=== PATIENT | female | born 2000 | race Caucasian/White ===

== ENCOUNTER 2025-07-17 14:48 | Outpatient (REF) | payer OTHER, MEDICAID, SELFPAY ==
--- OUTSIDE RECORDS SUMMARY | 2024-02-09 07:00 | XMS_ITS ---
Author Organization [facility] Address [address] [place], [place] [id number] Care Team Providers Care Heating And Air Conditioning Mechanic Name Role Phone Delmi Borja Unavailable [phone] REASON FOR VISIT Wellness Encounters Encounter Location Date Provider Diagnosis Luis Alberto [address] [place] [address] 02/09/2024 Delmi Borja Plan Of Treatment No Information Progress Notes * Meg PARTIDADOB:2000 ([age] yo F)Acc No.[id number]:02/09/2024 Progress Notes Patient: Meg MORALEZ Provider: Kamala Borja :2000 A ge:24 Y S ex:Female Date:02/09/2024 Address:[address] [place], [place] [id number] Subjective: * Chief Complaints: * 1 . Wellness. * Medical History: Objective: * Vitals: Assessment: Plan: * Treatment: Care Plan: * Problems: * Billing Information: * Visit Code: * Procedure Codes: * Electronic signature of SIGRID Holloway on 07/17/2025 at 11:20 AM EDT Sign off status: Pending * Provider: Kamala Borja Date: 02/09/2024 Generated for Srinivasan johnson/Violeta/eTransmitting on: 0 07/17/2025 11:20 AM EDT
--- OUTSIDE RECORDS SUMMARY | 2025-07-17 11:20 | XMS_ITS | Encounter Summary ---
Author Organization [facility] Address [address] [facility] [place] [address] Care Team Providers Care Human Resources Director Name Role Phone Luz Blevins MD Primary Care Provider [phone] Reason for Visit * Reason Comments Well Women Visit Weight Management Encounter Details Date Type Department Care Team (Latest Contact Info) Description 07/17/2025 11:20 AM EDT Procedure Visit [facility] [address] [facility] [place] [address] Marnie Carson PA [address] [facility] [address] [facility] [address] [place], [id number] Well woman exam with routine gynecological exam; Encounter for weight management; Irregular menstrual cycle; PCOS (polycystic ovarian syndrome) Social History Tobacco Use Types Packs/Day Years Used Date Smoking Tobacco: Never Assessed Comments No Sex and Gender Information Value Date Recorded Sex Assigned at Not on file Legal Sex Female 7:15 PM EDT Gender Identity Not on file Sexual Orientation Not on file documented as of this encounter Last Filed Vital Signs Vital Sign Reading Time Taken Comments Blood Pressure 122/84 07/17/2025 11:45 AM EDT Pulse - - Temperature - - Respiratory Rate - - Oxygen Saturation - - Inhaled Oxygen Concentration - - Weight 80.2 kg (176 lb 12 oz) 07/17/2025 11:45 A M EDT Height 162.6 cm (5' 4 ) 07/17/2025 11:45 AM EDT Body Mass Index 30.34 07/17/2025 11:45 AM EDT documented in this encounter Progress Notes * ROXANN Rome - 07/17/2025 11:20 AM EDT Reason for Appointment: Patient ID: Meg Howell is a 25 y.o. female who presents for Well Women Visit and Weight Management Patient presents today for Annual Exam. MEDICATIONS Current Outpatient Medications Medication Instructions metFORMIN (GLUCOPHAGE) 1,000 mg, Oral, Daily with breakfast metFORMIN XR (GLUCOPHAGE-XR) 1,000 mg, Oral, Daily with evening meal, Do not crush, chew, or split. phentermine (ADIPEX-P) 37.5 mg, Oral, Daily before breakfast ALLERGIES No Known Allergies PROBLEMS Active Ambulatory Problems Diagnosis Date Noted No Active Ambulatory Problems Resolved Ambulatory Problems Diagnosis Date Noted No Resolved Ambulatory Problems No Additional Past Medical History HISTORY PAST MEDICAL HISTORY SOCIAL HISTORY No past medical history on file. Social History Tobacco Use Smoking status: Not on file Smokeless tobacco: Not on file Substance Use Topics Alcohol use: Not on file Drug use: Not on file FAMILY HISTORY No family history on file. SURGICAL HISTORY No past surgical history on file. REVIEW OF SYSTEMS Review of Systems: Review of Systems Constitutional: Negative. HENT: Negative. Eyes: Negative. Respiratory: Negative. Cardiovascular: Negative. Gastrointestinal: Negative. Genitourinary: Negative. Musculoskeletal: Negative. Skin: Negative. Neurological: Negative. All other systems reviewed and are negative. Hematological: Negative. Endocrine: Negative. Allergic/Immunologic: Negative. OBJECTIVE Objective: Physical Exam Constitutional: Appearance: Normal appearance. She is well-developed. Genitourinary: Vulva normal. Right Adnexa: not tender and no mass present. Left Adnexa: not tender and no mass present. No cervical discharge. Breasts: Breasts are soft. Right: Normal. Left: Normal. HENT: Head: Normocephalic. Nose: Nose normal. Mouth/Throat: Mouth: Mucous membranes are moist. Cardiovascular: Rate and Rhythm: Normal rate and regular rhythm. Pulmonary: Effort: Pulmonary effort is normal. Breath sounds: Normal breath sounds. Abdominal: General: Bowel sounds are normal. There is no distension. Palpations: Abdomen is soft. Tenderness: There is no abdominal tenderness. There is no guarding or rebound. Musculoskeletal: General: No swelling. Normal range of motion. Cervical back: Normal range of motion. Right lower leg: No edema. Left lower leg: No edema. Neurological: General: No focal deficit present. Mental Status: She is alert and oriented to person, place, and time. Skin: General: Skin is warm and dry. Psychiatric: Mood and Affect: Mood normal. Behavior: Behavior normal. Vitals and nursing note reviewed. Exam conducted with a tombstone polisher present. Vitals: Estimated body mass index is 30.34 kg/m?? as calculated from the following: Height as of this encounter: 5' 4 . Weight as of this encounter: 176 lb 12 oz. BP: 122/84 Patient's last menstrual period was 06/24/2025 (approximate). ASSESSMENT & PLAN ICD-10-CM 1. Well woman exam with routine gynecological exam Z01.419 Pap Smear 2. Encounter for weight management Z76.89 phentermine (Adipex-P) 37.5 MG tablet Annual Exam: Patient presents today for an annual exam. Patient states she is doing well and has no complaints. Pap was obtained without difficulty. No orders of the defined types were placed in this encounter. Follow Up: Patient is to return in one year for annual unless needed otherwise. Documented by Supriya North MA on behalf of: ROXANN Rome documented in this encounter Plan of Treatment Upcoming Encounters Date Type Department Care Team (Late st Contact Info) Description 10/09/2025 10:30 AM EST Office Visit [facility] [address] [place] [address] Marnie Carson PA [address] [place] [address] Scheduled Orders Name Type Priority Associated Diagnoses Orde r Schedule Pap Smear Pathology and Cytology Routine Well woman exam with routine gynecological exam Ordered: 07/17/2025 documented as of this encounter Visit Diagnoses Diagnosis Well woman exam with routine gynecological exam Routine gynecological examination Encounter for weight management Irregular menstrual cycle PCOS (polycystic ovarian syndrome) Polycystic ovaries documented in this encounter Care Teams Human Resources Director Relationship Specialty Start Date End Date Luz Blevins MD [address] [place] [address] PCP - General Family Medicine 03/14/23 documented as of this encounter
--- OUTSIDE RECORDS SUMMARY | 2025-07-17 14:53 | XMS_ITS | Clinical Summary ---
Author Organization [facility] Address [id number] [address] [place] [address] Care Team Providers Care Computer Systems Support Specialist Name Role Phone No Pcp, No Pcp Primary Care Provider Unavailabl e Allergies No known active allergies Medications sertraline (ZOLOFT) 25 mg tabletIndication s:Anxiety Take 1 tablet (25 mg total) by mouth in the morning. 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 Reportedly treated with 3 doses of Bicillin. Reviewed case with Dr. Simmons. The patient with low titer disease. It is quite difficult to determine if RPR fast condition, reinfection, persistent disease is present. Recommendation is that the patient is treated again because she is now . Treatment needs to be Bicillin in a dose of 2.4 million units each week x3 weeks. Resolved Problems Problem Noted Date Diagnosed Date Resolved Date Antepartum syphilis in second trimester 02/17/2019 06/14/2021 Encounters Date Type Department Care Team Description 07/08/2025 Telephone [facility] Internal Medicine - Family Medicine [address] [place] [place] [address] Rito Molina, VASCULAR SONOGRAPHER 06/10/2025 Travel from Last 3 Months Immunizations No known immunizations Family History Medical History Relation Name Comments Hypertension Mother Thyroid disease Paternal Grandmother Cancer Neg Hx Hyperlipidemia Neg Hx Relation Name Status Comments Father Alive Mother Alive Paternal Grandmother Social History Tobacco Use Types Packs/Day Years Used Date Smoking Tobacco: Never Smokeless Tobacco: Never Tobacco Cessation:Counseling Given: Not Answered Alcohol Use Standard Drinks/Week Comments Not Currently 0 (1 standard drink = 0.6 oz pur e alcohol) not while . Overall Financial Resource Strain (CARDIA) Answe r Date Recorded How hard is it for you to pa y for the very basics like food, housing, medical care, and heating? Not very hard 01/14/2025 PHQ-2 Answer Date Recorded Total Score 0 01/15/2025 PRAPARE - Transportation Answer Date Re corded In the past 12 months, has l ack of transportation kept you from medical appointments or from getting medications? No 01/04 In the past 12 months, has l ack of transportation kept you from meetings, work, or from getting things needed for daily living? No 01/14/2025 Housing Instability Answer Date Recorde d Are you worried or concerned that in the next two months you may not have stable housing that you own, rent or stay in as a part of a household? No 01/14/2025 Childcare Answer Date Recorded Childcare Unknown 04/17/2019 Employment Answer Date Recorded Employment Unknown 04/17/2019 Hunger Screening Answer Date Recorded Within the past 12 months we worried whether our food would run out before we got money to buy more. Never True 01/14/2025 Within the past 12 months th e food we bought just didn't last and we didn't have money to get more. Never True 01/14/2025 Purpose - Life Answer Date Recorded Purpose and direction in life Unknown Comments No Sex and Gender Information Value Date Recorded Sex Assigned at Female 12/18/2022 11:43 PM EST Legal Sex Female 11:53 AM EDT Gender Identity Female 12/18/2022 11:43 PM EST Sexual Orientation Straight 12/18/2022 11 :43 PM EST Last Filed Vital Signs Vital Sign Reading Time Taken Comments Blood Pressure 118/70 01/15/2025 2:36 PM EDT Pulse 78 01/15/2025 2:36 PM EDT Temperature 36.6 C (97.9 F) 01/15/2025 2:36 PM EDT Respiratory Rate 18 01/15/2025 2:36 PM EDT Oxygen Saturation 99% 01/15/2025 2:36 PM EDT Inhaled Oxygen Concentration - - Weight 82.2 kg (181 lb 3.2 oz) 01/15/2025 2:36 P M EDT Height 161 cm (5' 3.39 ) 01/15/2025 2:36 PM EDT Body Mass Index 31.71 01/15/2025 2:36 PM EDT Plan of Treatment Health Maintenance Due Date Last Done Comments Adult BMI Follow Up Plan 01/05/2016 Pap Smear 2019 DTaP,Tdap and Td Vaccines (7 - Td or Tdap) 06/02/2020 06/02/2010, 05/12/2003, 01/27/1999, Additional history exists Influenza Vaccine 07/07/2025 09/14/2006, , 11/12/2004 Adult BMI Screening 01/15/2026 01/15/2025 Depression Screening 01/15/2026 01/15/2025 Tobacco Screening 01/15/2026 01/15/2025 Goals Goal Patient Goal Type Associated Problems Recent Progress Patient-Stated? Author safe discharge to home General Yes Reshma Mancia, RN Note: Evaluation of progress towards goal: safe transition from hospital to home with family support. Medical Devices Not on file Procedures Procedure Name Priority Date/Time Associated Diagnosis Comments THYROID PROFILE INCLUDES TSH FT4 Routine 06/10/2025 1:41 PM EDT Polycystic ovarian syndrome HCG-BETA, SERUM Routine 06/10/2025 1:41 PM EDT Polycystic ovarian syndrome CBC WITH AUTO DIFFERENTIAL Routine 06/10/2025 1:41 PM EDT Polycystic ovarian syndrome FOLLICLE STIMULATING HORMONE Routine 06/10/2025 1:41 PM EDT Polycystic ovarian syndrome LUTEINIZING HORMONE Routine 06/10/2025 1 :41 PM EDT Polycystic ovarian syndrome HEMOGLOBIN A1C Routine 06/10/2025 1:41 PM EDT Polycystic ovarian syndrome DEHYDROEPIANDROSTERON E, SERUM Routine 06/10/2025 1:41 PM EDT Polycystic ovarian syndrome DHEA-SULFATE Routine 06/10/2025 1:41 PM EDT Polycystic ovarian syndrome PROLACTIN Routine 06/10/2025 1:41 PM EDT Polycystic ovarian syndrome from Last 3 Months Results * Dehydroepiandrosterone, Serum (DHEA) (06/10/2025 1:41 PM EDT) DEHYDROEPIANDROSTER ONE, S 4.8 <13 ng/mL 06/12/2025 12:38 PM EDT [facility] Comment: ADDITIONAL INFORMATION This test was developed and its performance characteristics determined by [facility] in a manner consistent with CLIA requirements. This test has not been cleared or approved by the U.S. Food and Drug Administration. Test Performed by: [facility] - [address] [address] Library Media Technician: Jesus Brandt Ph.D.; CLIA# [id number] Blood Venous blood / Unknown Venipuncture / Unknown 06/10/2025 1:41 PM EDT 06/10/2025 1:43 PM EDT us Marcelino Hein DO LAB BLOOD ORDERABLES Final Resu lt [facility] [address] [place] [address], [place] * Thyroid profile includes TSH FT4 (06/10/2025 1:41 PM EDT) Pathologist [facility] FREE T4 0.82 0.61 - 1.60 ng/dL 06/10/2025 7:41 PM EDT [facility] TSH 1.23 0.49 - 4.67 uIU/mL 06/10/2025 7:41 PM EDT [facility] Blood Venous blood / Unknown Venipuncture / Unknown 06/10/2025 1:41 PM EDT 06/10/2025 1:43 PM EDT Marcelino Hein DO LAB BLOOD ORDERABLES Final Resu lt [facility] [address] [place] [id number], [place] [phone] * CBC auto differential (06/10/2025 1:41 PM EDT) [facility] WBC 6.5 4 - 11 x10E9/L 06/10/2025 7:04 PM EDT [facility] RBC Count 5.08 3.8 - 5.2 X10E12/L 06/10/2025 7:04 PM EDT [facility] Hemoglobin 13.9 11.7 - 15.5 g/dL 06/10/2025 7:04 PM EDT [facility] Hematocrit 40.6 35 - 47 % 06/10/2025 7:04 PM EDT [facility] MCV 80 80 - 100 fL 06/10/2025 7:04 PM EDT [facility] MCH 27.4 27 - 34 pg 06/10/2025 7:04 PM EDT [facility] MCHC 34.3 32 - 36 g/dL 06/10/2025 7:04 PM EDT [facility] RDW 13.6 11.5 - 15 % 06/10/2025 7:04 PM EDT [facility] Platelet Count 296 150 - 450 X10E9/L 06/10/2025 7:04 PM EDT [facility] MPV 7.9 7 - 12 fL 06/10/2025 7:04 PM EDT [facility] Neutrophils % 61.5 % 06/10/2025 7:04 PM EDT [facility] Lymphocytes % 31.2 % 06/10/2025 7:04 PM EDT [facility] Monocytes % 5.4 % 06/10/2025 7:04 PM EDT [facility] Eosinophils % 1.3 % 06/10/2025 7:04 PM EDT [facility] Basophils % 0.6 % 06/10/2025 7:04 PM EDT [facility] Neutrophils Absolute (A) 4.0 1.5 - 6.6 10*3/uL 06/10/2025 7:04 PM EDT [facility] Lymphocytes Absolute 2.0 1.0 - 3.5 10*3/uL 06/10/2025 7:04 PM EDT [facility] Monocytes Absolute 0.3 0.0 - 0.9 10*3/uL 06/10/2025 7:04 PM EDT [facility] Eosinophils Absolute 0.1 0.0 - 0.4 10*3/uL 06/10/2025 7:04 PM EDT [facility] Basophils Absolute 0.0 0.0 - 0.2 10*3/uL 06/10/2025 7:04 PM EDT [facility] Differential Type AUTOMATED DIFFERENTIAL 06/10/2025 7:04 PM EDT [facility] Blood Venous blood / Unknown Venipuncture / Unknown 06/10/2025 1:41 PM EDT 06/10/2025 1:43 PM EDT us Marcelino R Melvina DO LAB BLOOD ORDERABLES Final Resu lt [facility] [address] [place] [address], [place] [phone] * Prolactin (06/10/2025 1:41 PM EDT) PROLACTIN 5.4 3.3 - 26.7 ng/mL 06/10/2025 7:39 PM EDT [facility] Blood Venous blood / Unknown Venipuncture / Unknown 06/10/2025 1:41 PM EDT 06/10/2025 1:43 PM EDT Marcelino R Melvina DO LAB BLOOD ORDERABLES Final Resu lt [facility] [address] [place] [address], [place] [phone] * (ABNORMAL) DHEA-sulfate (06/10/2025 1:41 PM EDT) Pathologist [facility] DHEA S 481(H) 18 - 391 ug/dL 06/10/2025 7:36 PM EDT [facility] Blood Venous blood / Unknown Venipuncture / Unknown 06/10/2025 1:41 PM EDT 06/10/2025 1:43 PM EDT Marcelino R Melvina DO LAB BLOOD ORDERABLES Final Resu lt [facility] [address] [place] [address], * hCG, quantitative, (06/10/2025 1:41 PM EDT) SERUM B HCG,3RD I.S. <5 mIU/mL 06/10/2025 7:25 PM EDT [facility] Blood Venous blood / Unknown Venipuncture / Unknown 06/10/2025 1:41 PM EDT 06/10/2025 1:43 PM EDT Narrative [facility] - 06/10/2025 7:25 PM EDT WEEKS (SINCE LMP) MIU/mL 3 WEEKS 5 - 50 4 WEEKS 5 - 426 5 WEEKS 18 - 7,340 6 WEEKS 1,080 - 56,500 7-8 WEEKS 7,650 - 229,000 9-12 WEEKS 25,700 - 288,000 13-16 WEEKS 13,300 - 254,000 17-24 WEEKS 4,060 - 165,400 25-40 WEEKS 3,640 - 117,000 MALES AND NON- FEMALES - <5 MIU/mL This test has been FDA approved for use in only. Elevated levels are not necessarily diagnostic for trophoblastic or nontrophoblastic neoplasms. Marcelino Hein DO LAB BLOOD ORDERABLES Final Resu lt [facility] [address] [place] [address], [place] [phone] * Hemoglobin A1c (06/10/2025 1:41 PM EDT) HEMOGLOBIN A1C 5.4 4.4 - 5.6 % 06/10/2025 7:41 PM EDT [facility] Comment: ADA Guidelines Result HgbA1c Normal : less than 5.7 % Prediabetes : 5.7 % to 6.4 % Diabetes : > 6.4 % Use with caution in patients with abnormal hemoglobin variants as the half-life of red blood cells and in vivo glycation rates are affected. EST. AVERAGE GLUCOSE 108 mg/dL 06/10/2025 7:41 PM EDT [facility] Blood Venous blood / Unknown Venipuncture / Unknown 06/10/2025 1:41 PM EDT 06/10/2025 1:43 PM EDT Marcelino R Melvina DO LAB BLOOD ORDERABLES Final Resu lt [facility] [address] [place] [address], [place] [phone] * Luteinizing hormone (06/10/2025 1:41 PM EDT) LUTEINIZING HORMONE 11.3 mIU/mL 06/10/2025 8:01 PM EDT [facility] Blood Venous blood / Unknown Venipuncture / Unknown 06/10/2025 1:41 PM EDT 06/10/2025 1:43 PM EDT [facility] - 06/10/2025 8:01 PM EDT NORMAL FEMALE Follicular 2.1-10.9 mIU/mL Mid Cycle 19.2-103 mIU/mL Luteal 1.2-12.9 mIU/mL Post Deana 10.9-58.6 mIU/mL Marcelino R Melvina DO LAB BLOOD ORDERABLES Final Resu lt [facility] [address] [place] [address], [place] [phone] * Follicle stimulating hormone (06/10/2025 1:41 PM EDT) FOLLICLE STIM HORMONE 6.9 mIU/mL 06/10/2025 8:00 PM EDT [facility] Blood Venous blood / Unknown Venipuncture / Unknown 06/10/2025 1:41 PM EDT 06/10/2025 1:43 PM EDT [facility] - 06/10/2025 8:00 PM EDT NORMAL FEMALE: Luteal 1.8-5.1 mIU/mL Follicular 3.8-8.8 mIU/mL Mid Cycle 4.5-22.5 mIU/mL Post Elizabeth 16.7-113.6 mIU/mL us Marcelino Hein DO LAB BLOOD ORDERABLES Final Resu lt [facility] [address] [place] [address], [place] [phone] from Last 3 Months Insurance [employer] Member Subscriber Plan / Payer (Ef fective 2022-Present) Name:Meg Howell Relation to Subscriber:Self Name:Meg Howell Payer ID:Not on file Group ID:[id number] Type:Not on file Address: [address] Advance Directives * Full Code (Latest Code Status on File) Date Activated Date Inactivated Comments 12/18/2022 10:13 PM 12/19/2022 6:57 PM Care Teams Computer Systems Support Specialist Relationship Specialty Start Date End Date No Pcp, [place] [address] PCP - General Family Medicine 03/12/19
--- OUTSIDE RECORDS SUMMARY | 2025-07-17 14:53 | XMS_ITS | Encounter Summary ---
Author Organization [facility] Address [address] [facility] [place] [address] Care Team Providers Care Assistant Technician Name Role Phone Luz Blevins MD Primary Care Provider [phone] Encounter Details Date Type Department Care Team (Late Contact Info) Description 07/17/2025 Bamboo flowsheet [facility] [address] [place] [address] Marnie Carson PA [address] [place] [address] [address] [place], [facility] Social History Tobacco Use Types Packs/Day Years Used Date Smoking Tobacco: Never Assessed Comments No Sex and Gender Information Value Date Recorded Sex Assigned at Not on file Legal Sex Female 7:15 PM EDT Gender Identity Not on file Sexual Orientation Not on file documented as of this encounter Plan of Treatment Upcoming Encounters Date Type Department Care Team (Late Contact Info) Description 10/09/2025 10:30 AM EST Office Visit [facility] [address] [place] [address] Marnie Carson PA [address] [place] [address] documented as of this encounter Visit Diagnoses Not on filedocumented in this encounter Care Teams Assistant Technician Relationship Specialty Start Date End Date Luz Blevins MD [address] [facility] [place], [place] [id number] PCP - General Family Medicine 03/14/23 documented as of this encounter
--- OUTSIDE RECORDS SUMMARY | 2025-07-17 14:53 | XMS_ITS | Encounter Summary ---
Author Organization [facility] tem Address [id number] [address] [place] [address] Care Team Providers Care Wind Field Service Manager Name Role Phone No Pcp, No Pcp Primary Care Provider Unavailabl e Encounter Details Date Type Department Care Team (Late st Contact Info) Description 05/17/2021 Orders Only M[facility]- Medicine at [facility] [address] [place] [id number] External, Scanning Provider Social History Tobacco Use Types Packs/Day Years Used Date Smoking Tobacco: Never Smokeless Tobacco: Never Alcohol Use Standard Drinks/Week Comments Not Currently 0 (1 standard drink = 0.6 oz pur e alcohol) not while . Childcare Answer Date Recorded Childcare Unknown 04/17/2019 Employment Answer Date Recorded Employment Unknown 04/17/2019 Purpose - Life Answer Date Recorded Purpose and direction in life Unknown Comments Yes Sex and Gender Information Value Date Recorded Sex Assigned at Female 12/18/2022 11:43 PM EST Legal Sex Female 11:53 AM EDT Gender Identity Female 12/18/2022 11:43 PM EST Sexual Orientation Straight 12/18/2022 11 :43 PM EST documented as of this encounter Plan of Treatment Not on file documented as of this encounter Procedures Procedure Name Priority Date/Time Associated Diagnosis Comments US PREG LMTD 1 OR MORE FETUS Routine 03/23/2021 documented in this encounter Results * Ultrasound limited 1 or more fetus (03/23/2021) Anatomical Region Laterality Modality OB-CLERK STENOGRAPHER Ultrasound Narrative 03/23/2021 see attached report us Scanning Provider External IMG US ORDERABLES Pablo lilian Result - Final documented in this encounter Visit Diagnoses Not on filedocumented in this encounter Care Teams Wind Field Service Manager Relationship Specialty Start Date End Date No Pcp, [place] [address] PCP - General Family Medicine 03/12/19 documented as of this encounter
--- OUTSIDE RECORDS SUMMARY | 2025-07-17 14:53 | XMS_ITS | Patient Health Record ---
Author Organization [facility]ices Address [address] [place], [place] [id number] Support Name Relationship Address Phone Gerardo Briceño Emergency Contact [address] [place] [address] Unavailable Meg Howell Guarantor Unknown [phone] Reason For Referral No Information Plan Of Treatment No Information
--- OUTSIDE RECORDS SUMMARY | 2025-07-17 14:53 | XMS_ITS | Clinical Summary ---
Author Organization [facility] Address [address] [place] [address] Care Team Providers Care Postpartum Rn Name Role Phone Luz Blevins MD Primary Care Provider [phone] Allergies No known active allergies Medications phentermine (Adipex-P) 37.5 MG tabletIndicati ons:Encounter for weight management Take 1 tablet (37.5 mg) by mouth in the morning. Take before meals. 90 tablet 07/17/20 25 025 Active metFORMIN XR (Glucophage-XR ) 500 MG 24 hr tabletIndicati ons:Irregular menstrual cycle,PCOS (polycystic ovarian syndrome) Take 2 tablets (1,000 mg) by mouth in the evening. Take with meals Do not crush, chew, or split. 180 tablet 3 07/17/20 25 026 Active metFORMIN XR (Glucophage-XR ) 500 MG 24 hr tabletIndicati ons:Irregular menstrual cycle,PCOS (polycystic ovarian syndrome) Take 2 tablets (1,000 mg) by mouth in the evening. Take with meals Do not crush, chew, or split. 30 tablet 11 06/11/20 25 025 Discontinued(Re order) phentermine (Adipex-P) 37.5 MG tabletIndicati ons:Encounter for weight management Take 1 tablet (37.5 mg) by mouth in the morning. Take before meals. 30 tablet 06/11/20 25 025 Discontinued metFORMIN (Glucophage) 500 MG tabletIndicati ons:Weight loss counseling, encounter for,PCOS (polycystic ovarian syndrome),Insu tahir resistance Take 2 tablets (1,000 mg) by mouth in the morning. Take with meals. 60 tablet 11 06/11/20 25 025 Discontinued Encounters Date Type Department Care Team Description 07/17/2025 11:20 AM EDT [place] [address] Marnie Carson PA Well woman exam with routine gynecological exam; Encounter for weight management; Irregular menstrual cycle; PCOS (polycystic ovarian syndrome) 07/17/2025 Bamboo [place] [address] Marnie Carson PA 06/11/2025 2:10 PM EDT [place] [address] Marcelino Hein DO Weight loss counseling, encounter for; Irregular menstrual cycle; PCOS (polycystic ovarian syndrome); Encounter for weight management; Insulin resistance 06/11/2025 11:00 AM EDT Ancillary [place] [address] PCOS (polycystic ovarian syndrome) 06/10/2025 External Result Encounter [facility] External Department Unsolicited Marcelino Hein DO 05/13/2025 1:50 PM EDT [place] [address] Marcelino Hein DO Irregular menstrual cycle; History of ovarian cyst; PCOS (polycystic ovarian syndrome) 05/13/2025 Bamboo [place] [address] Marcelino Hein DO 05/12/2025 Travel from Last 3 Months Social History Tobacco Use Types Packs/Day Years Used Date Smoking Tobacco: Never Assessed Comments No Sex and Gender Information Value Date Recorded Sex Assigned at Not on file Legal Sex Female 7:15 PM EDT Gender Identity Not on file Sexual Orientation Not on file Last Filed Vital Signs Vital Sign Reading [...] Mass Index 30.34 07/17/2025 11:45 AM EDT Plan of Treatment Upcoming Encounters Date Type Department Care Team (Late st Contact Info) Description 10/09/2025 10:30 AM EST Office Visit [facility] [address] [address] Marnie Carson PA [address] [place] [address] Health Maintenance Due Date Last Done Comments Influenza Vaccine (#1) 2025 09/14/2006, 2004, 11/12/2004 Procedures Procedure Name Priority Date/Time Associated Diagnosis Comments US PELVIC COMPLETE W/ TV Routine 06/11/2025 11:15 AM EDT PCOS (polycystic ovarian syndrome) DEHYDROEPIANDROSTERON E, S Routine 06/10/2025 1:41 PM EDT LH Routine 06/10/2025 1:41 PM EDT FSH Routine 06/10/2025 1:41 PM EDT TSH Routine 06/10/2025 1:41 PM EDT HEMOGLOBIN A1C Routine 06/10/2025 1:41 PM EDT PROLACTIN Routine 06/10/2025 1:41 PM EDT DHEA SULFATE Routine 06/10/2025 1:41 PM EDT SERUM B HCG, 3RD I.S. ([facility]) Routine 06/10/2025 1:41 PM EDT CBC WITH AUTO DIFFERENTIAL Routine 06/10/2025 1:41 PM EDT from Last 3 Months Results * US Pelvis w/ TV (06/11/2025 11:15 AM EDT) Anatomical Region Laterality Modality Pelvis Ultrasound 06/12/2025 12:1 1 PM EDT Impressions 06/12/2025 12:33 PM EDT 1. Left ovarian complex cyst. 2. Normal uterus. TRANSCRIBED BY: ELECTRONICALLY SIGNED BY: Jaret Munoz MD Narrative 06/12/2025 12:33 PM EDT FINDINGS: Uterus 8.4 x 3.9 x 5.9 cm Endometrium 7 mm Right Ovary Surgically absent Left Ovary 5.2 x 3.6 x 3.6 cm Normal uterine orientation and morphology. Normal endometrium. No pelvic fluid. Heterogeneous hypoechogenic area within the left ovary 2.8 x 2.6 x 2.4 cm area, likely complex cyst. Several neighboring peripheral follicles, no shadowing or increase in vascularity. Procedure Note Jaret Munoz MD - 06/12/2025 FINDINGS: Uterus 8.4 x 3.9 x 5.9 cm Endometrium 7 mm Right Ovary Surgically absent Left Ovary 5.2 x 3.6 x 3.6 cm Normal uterine orientation and morphology. Normal endometrium. No pelvic fluid. Heterogeneous hypoechogenic area within the left ovary 2.8 x 2.6 x 2.4 cmarea, likely complex cyst. Several neighboring peripheral follicles, noshadowing or increase in vascularity. IMPRESSION: 1. Left ovarian complex cyst. 2. Normal uterus. TRANSCRIBED BY: ELECTRONICALLY SIGNED BY: Jaret Munoz MD [facility] DO [facility] US PROCEDURES Final Result * DEHYDROEPIANDROSTERONE, S (06/10/2025 1:41 PM EDT) DEHYDROEPIANDROSTERO NE, S 4.8 <13 ng/mL [facility] Comment: ADDITIONAL INFORMATION This test was developed and its performance characteristics determined by [facility] in a manner consistent with CLIA requirements. This test has not been cleared or approved by the U.S. Food and Drug Administration. Test Performed by: [facility] [address] [place] [address] Retail Stocker: Jesus Brandt Ph.D.; CLIA# [id number] 06/10/2025 1:41 PM EDT 06/10/2025 6:16 PM EDT us Marcelino Hein DO LAB BLOOD ORDERABLES Final Resul t [facility] * SERUM B HCG, 3RD I.S. ([facility]) (06/10/2025 1:41 PM EDT) SERUM B HCG, 3RD I.S. <5 mIU/mL [facility] Comment: WEEKS (SINCE LMP) MIU/mL 3 WEEKS 5 [...] necessarily diagnostic for trophoblastic or nontrophoblastic neoplasms. PERFORMED AT [facility] [address],[place] [address] 06/10/2025 1:41 PM EDT 06/10/2025 6:16 PM EDT us Marcelino Melvina DO LAB BLOOD ORDERABLES Final Resul t [facility] * CBC auto differential (06/10/2025 1:41 PM EDT) WHITE BLOOD CELL COUNT, WBC 6.5 4 - 11 x10E9/L [facility] RED BLOOD CELL COUNT, RBC 5.08 3.8 - 5.2 X10E12/L [facility] HEMOGLOBIN 13.9 11.7 - 15.5 g/dL [facility] HEMATOCRIT 40.6 35 - 47 % [facility] MEAN CELL VOLUME, MCV 80 80 - 100 fL [facility] MEAN CELL HEMOGLOBIN, MCH 27.4 27 - 34 pg [facility] MEAN CELL HEMOGLOGIN CONCENTRATION, MCHC 34.3 32 - 36 g/dL [facility] RED CELL DISTRIBUTION WIDTH, RDW 13.6 11.5 - 15 % [facility] PLATELET COUNT 296 150 - 450 X10E9/L [facility] MEAN PLATELET VOLUME, MPV 7.9 7 - 12 fL [facility] % NEUTROPHILS 61.5 % [facility] % LYMPHOCYTES 31.2 % [facility] % MONOCYTES 5.4 % [facility] % EOSINOPHILS 1.3 % [facility] % BASOPHILS 0.6 % [facility] ABSOLUTE NEUTROPHIL 4.0 1.5 - 6.6 10*3/uL [facility] ABSOLUTE LYMPHOCYTE 2.0 1.0 - 3.5 10*3/uL [facility] ABSOLUTE MONOCYTE 0.3 0.0 - 0.9 10*3/uL [facility] ABSOLUTE EOSINOPHIL 0.1 0.0 - 0.4 10*3/uL [facility] ABSOLUTE BASOPHIL 0.0 0.0 - 0.2 10*3/uL [facility] DIFFERENTIAL TYPE AUTOMATED DIFFERENTIAL [facility] Comment: PERFORMED AT [facility] [address],[place] [address] 06/10/2025 1:41 PM EDT 06/10/2025 6:16 PM EDT us Marcelino Melvina DO LAB BLOOD ORDERABLES Final Resul t [facility] * Prolactin (06/10/2025 1:41 PM EDT) PROLACTIN 5.4 3.3 - 26.7 ng/mL [facility] Comment: PERFORMED AT [address],[place] [address] 06/10/2025 1:41 PM EDT 06/10/2025 6:16 PM EDT us Marcelino Melvina DO LAB BLOOD ORDERABLES Final Resul t [facility] * (ABNORMAL) DHEA-sulfate (06/10/2025 1:41 PM EDT) DHEA S 481(H) 18 - 391 ug/dL [facility] Comment: PERFORMED [address],[place] [address] 06/10/2025 1:41 PM EDT 06/10/2025 6:16 PM EDT us Marcelino Melvina DO LAB BLOOD ORDERABLES Final Resul t Performing Organization Address City/[facility]/ZIP Co de Phone Number [facility] * TSH (06/10/2025 1:41 PM EDT) FREE T4 0.82 0.61 - 1.60 ng/dL [facility] TSH 1.23 0.49 - 4.67 uIU/mL [facility] Comment: PERFORMED [address],[place] [address] 06/10/2025 1:41 PM EDT 06/10/2025 6:16 PM EDT us Marcelino Melvina DO LAB BLOOD ORDERABLES Final Resul t [facility] * Hemoglobin A1c (06/10/2025 1:41 PM EDT) HEMOGLOBIN A1C 5.4 4.4 - 5.6 % [facility] Comment: ADA Guidelines Result HgbA1c Normal : less than 5.7 % Prediabetes : 5.7 % to 6.4 % Diabetes : > 6.4 % Use with caution in patients with abnormal hemoglobin variants as the half-life of red blood cells and in vivo glycation rates are affected. AVERAGE GLUCOSE 108 mg/dL [facility] Comment: PERFORMED AT [address], [place] [address] 06/10/2025 1:41 PM EDT 06/10/2025 6:16 PM EDT [facility] BLOOD ORDERABLES Final Resul t Performing Organization Address [facility] Co de Phone Number [facility] * Luteinizing hormone (06/10/2025 1:41 PM EDT) LUTEINIZING HORMONE 11.3 mIU/mL [facility] Comment: NORMAL FEMALE Follicular 2.1-10.9 mIU/mL Mid Cycle 19.2-103 mIU/mL Luteal 1.2-12.9 mIU/mL Post [place] 10.9-58.6 mIU/mL PERFORMED AT [address],[place] [address] 06/10/2025 1:41 PM EDT 06/10/2025 6:16 PM EDT Audanikazio DO LAB BLOOD ORDERABLES Final Resul t Performing Organization Address City/[facility] Co de Phone Number [facility] * Follicle stimulating hormone (06/10/2025 1:41 PM EDT) FOLLICLE STIM HORMONE 6.9 mIU/mL [facility] Comment: NORMAL FEMALE: Luteal 1.8-5.1 mIU/mL Follicular 3.8-8.8 mIU/mL Mid Cycle 4.5-22.5 mIU/mL Post [place] 16.7-113.6 mIU/mL PERFORMED AT [facility] [address],[place] [address] 06/10/2025 1:41 PM EDT 06/10/2025 6:16 PM EDT us Marcelino Melvina DO LAB BLOOD ORDERABLES Final Resul t [facility] from Last 3 Months Insurance [facility] BCBS MEDICAID [place] Care Teams Postpartum Rn Relationship Specialty Start Date End Date Luz Blevins MD [address] [place] [address] PCP - General Family Medicine 03/14/23
--- OUTSIDE RECORDS SUMMARY | 2025-07-17 14:53 | XMS_ITS | Encounter Summary ---
Author Organization [facility] tem Address [facility] [id number] [address] [place] [address] Care Team Providers Care Reimbursement Representative Name Role Phone No Pcp, No Pcp Primary Care Provider Unavailabl e Encounter Details Date Type Department Care Team (Late st Contact Info) Description 01/16/2025 Orders Only [facility] - Family Medicine [address] [place] [address] Shaun Hinkle, DO [address] [place] [address] Anxiety (Primary Dx) Social History Tobacco Use Types Packs/Day Years [...] on file documented as of this encounter Goals Goal Patient Goal Type Associated Problems Recent Progress Patient-Stated? Author safe discharge to home General Yes Reshma Mancia, RN Note: Evaluation of progress towards goal: safe transition from hospital to home with family support. documented as of this encounter Visit Diagnoses Diagnosis Anxiety- Primary Anxiety state, unspecified documented in this encounter Additional Health Concerns Assessment Noted Time PHQ-9 Depression Total Score: 0 01/16/20 25 2:34 PM EDT documented as of this encounter Care Teams Reimbursement Representative Relationship Specialty Start Date End Date No Pcp, [place] [address] PCP - General Family Medicine 03/12/19 documented as of this encounter
--- OUTSIDE RECORDS SUMMARY | 2025-07-17 14:53 | XMS_ITS | Clinical Summary ---
Author Organization [facility] Address [address] [place] [address] Care Team Providers Care Interactive Account Manager Name Role Phone Unavailable Primary Care Provider Unavailabl e Social History Tobacco Use Types Packs/Day Years Used Date Smoking Tobacco: Never Assessed Comments Unknown Sex and Gender Information Value Date Recorded Sex Assigned at Not on file Legal Sex Female 12:14 AM EDT Gender Identity Not on file Sexual Orientation Not on file Last Filed Vital Signs Vital Sign Reading Time Taken Comments Blood Pressure 136/87 02/14/2019 9:46 AM EDT Pulse - - Temperature 36.4 C (97.6 F) 02/14/2019 9:46 AM EDT Respiratory Rate - - Oxygen Saturation - - Inhaled Oxygen Concentration - - Weight 65.8 kg (145 lb) 02/14/2019 9:43 AM EDT Height 162.6 cm (5' 4 ) 02/14/2019 9:43 AM EDT Body Mass Index 24.89 02/14/2019 9:43 AM EDT Plan of Treatment Not on file
--- OUTSIDE RECORDS SUMMARY | 2025-07-17 14:53 | XMS_ITS | Encounter Summary ---
Author Organization [employer] [facility] tem Address [id number] [address] [place] [address] Care Team Providers Care Amalgamator Name Role Phone No Pcp, No Pcp Primary Care Provider Unavailabl e Encounter Details Date Type Department Care Team (Late st Contact Info) Description 07/08/2025 Telephone [facility] - Family Medicine [address] [place] [id number] Rito Molina, LEACH CELL OPERATOR Social History Tobacco Use Types Packs/Day Years [...] PM EST documented as of this encounter Miscellaneous Notes * Telephone Encounter - Rito Molina CNA - 07/08/2025 10:15 AM EDT ----- Message from Shaun Hinkle DO sent at 01/17/2025 4:33 PM EDT ----- Recheck anxiety * Telephone Encounter - Rito Molina CNA - 07/08/2025 10:15 AM EDT Called patient to schedule an appointment; Patient stated she was unable to schedule one right now and will call back. documented in this encounter Plan of Treatment Not on file documented as of this encounter Goals Goal Patient Goal Type Associated Problems Recent Progress Patient-Stated? Author safe discharge to home General Yes Reshma Mancia, RN Note: Evaluation of progress towards goal: safe transition from hospital to home with family support. documented as of this encounter Visit Diagnoses Not on filedocumented in this encounter Additional Health Concerns Assessment Noted Time PHQ-9 Depression Total Score: 0 01/16/20 25 2:34 PM EDT documented as of this encounter Care Teams Amalgamator Relationship Specialty Start Date End Date No [place]cp[place] [address] PCP - General Family Medicine 03/12/19 documented as of this encounter
[2025-07-21 17:08] LABS: Age Gdln ACOG Testing Note (.); IGP, rfx Aptima HPV ASCU Note (.)
== END 2025-07-17 14:49 | disposition home or self-care (01) ==
LOC: LAB 14:48
PROVIDERS: PCP Internal Medicine; Visit Provider Physician Assistant
DX: Z01.419 Encounter for gynecological examination (general) (routine) without abnormal findings (principal)
CPT/HCPCS: 88175